=== PATIENT | female | born 2000 | race Caucasian/White ===

== ENCOUNTER 2019-04-03 23:25 | Emergency (ER) | payer OTHER ==
[~2019-04-03] VITALS: Ht 154.9 cm; Wt 56.7 kg
[2019-04-03 23:30] VITALS: BP 115/79
--- NOTE | 2019-04-03 23:30 | NUR ---
TO BED # 08 AMBULATORY
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
[2019-04-04] MEDS ORDERED: KETOROLAC 30 MG/ML VIAL IVP ONE (00:05)
[2019-04-04] MEDS ORDERED: NACL 0.9% 1,000 ML IV ONE (00:05)
[2019-04-04 00:20] LABS: BILIRUBIN,URINE NEGATIVE (NEGATIVE); BLOOD, URINE TRACE-I (NEGATIVE); COLOR,URINE YELLOW (YELLOW); LEUKOCYTE ESTERASE ,URINE NEGATIVE (NEGATIVE); NITRITE, URINE NEGATIVE (NEGATIVE); PH,URINE 6.5 (5.0-9.0); UGLUCOSE NEGATIVE (NEGATIVE)
[2019-04-04 00:22] LABS: BASOPHILS % (AUTO) 0.1 % (0.0-2.0); EOSINOPHILS # (AUTO) 0.2 K/uL (0-0.4); EOSINOPHILS % (AUTO) 3.2 % (0.0-4.0); HEMATOCRIT 39.7 % (36-48); HEMOGLOBIN 13.5 g/dL (12.0-16.0); LYMPHOCYTES # (AUTO) 2.7 K/uL (2.5-16.5); LYMPHOCYTES % (AUTO) 47.9 % (20.5-51.1); MEAN CORPUSCULAR HEMOGLOBIN 27 pg (27-31); MEAN CORPUSCULAR HGB CONC 34 g/dL (33-37); MEAN CORPUSCULAR VOLUME 79.3 fL (80-94); MONOCYTES # (AUTO) 0.4 K/uL (0.8-1.0); MONOCYTES % (AUTO) 7.9 % (1.7-9.3); NEUTROPHILS # (AUTO) 2.3 K/uL (1.8-7.7); NEUTROPHILS % (AUTO) 40.9 % (42.2-75.2); PLATELET COUNT (AUTO) 297 K/uL (140-450); WHITE BLOOD COUNT (AUTO) 5.6 K/uL (4.5-11.0)
[2019-04-04 00:32] LABS: ANION GAP 15.1 (8-16); CARBON DIOXIDE 24.7 mmol/L (21-32); CREATININE 0.8 mg/dL (0.6-1.3); POTASSIUM 3.8 mmol/L (3.5-5.1)
[2019-04-04 00:46] LABS: RBC,URINE 0-5 /HPF (0-5); WBC,URINE 0-5 /HPF (0-5)
[2019-04-04 01:07] VITALS: BP 115/79
--- NOTE | 2019-04-04 01:08 | NUR ---
Patient discharged with v/s stable. Written and verbal after care instructions given and explained. Patient verbalized understanding. Ambulatory with to home WITH MOTHER. All questions addressed prior to discharge. Advised to follow up with PMD.
[2019-04-04 11:55] LABS: APPEARANCE,URINE Hazy (CLEAR)
== END 2019-04-04 01:07 | disposition home or self-care (01) ==
LOC: MED 23:25
DX: R55 Syncope and collapse (principal); R51 Headache
CPT/HCPCS: 36415; 80048; 81001; 81025; 85025; 93005; 96361; 96374; 99284; J1885; J7030

== ENCOUNTER 2019-08-24 16:34 | Emergency (ER) | payer OTHER ==
[~2019-08-24] VITALS: Ht 162.6 cm; Wt 61.2 kg
[2019-08-24 16:43] VITALS: BP 120/87
[2019-08-24 17:31] VITALS: BP 128/84
--- NOTE | 2019-08-24 17:33 | NUR ---
Stable. VSS. Minimal pain. PA has reassessed and Dc'd home. To exit.
== END 2019-08-24 17:33 | disposition home or self-care (01) ==
LOC: MED 16:34
DX: B37.3 Candidiasis of vulva and vagina (principal); J06.9 Acute upper respiratory infection, unspecified
CPT/HCPCS: 81002; 81025; 99283

== ENCOUNTER 2020-05-28 17:47 | Emergency (ER) | payer OTHER ==
[~2020-05-28] VITALS: Ht 162.6 cm; Wt 59.0 kg
[2020-05-28 18:06] VITALS: BP 160/70
[2020-05-28] MEDS ORDERED: KETOROLAC 30 MG/ML VIAL IM ONE (18:25)
--- NOTE | 2020-05-28 18:25 | NUR ---
19 y/o female c/o sore throat, headache, Left side of neck swollen, pain 7/10 dull X1.5 WEEKS. Pt was prescribed amoxicillin and ibuprofen with no relief. Today denies fever, chills, N/V NO PMH, RX NKA
--- NOTE | 2020-05-28 18:32 | NUR ---
Strep A screen RAPID completed per MD order and sent to lab.
--- NOTE | 2020-05-28 19:10 | NUR ---
Gave report to URSULA Garza, transferred care at this time.
[2020-05-28] MEDS ORDERED: PENICILLIN G BENZATHINE L-A 1.2 MU/2 ML SYR IM ONE (19:55)
--- NOTE | 2020-05-28 19:55 | NUR ---
RECIEVED CALL FROM LAB THAT STATED RAPID STREP NEEDED TO BE RECOLLECTED. VINCENZO STOUT NOTIFIED AND STATED NO NEED TO RECOLLET SWAB AT THIS TIME.
[2020-05-28 20:23] VITALS: BP 160/70
--- NOTE | 2020-05-28 20:24 | NUR ---
Patient discharged with v/s stable. Written and verbal after care instructions given and explained. Patient alert, oriented and verbalized understanding of instructions. Ambulatory with steady gait. All questions addressed prior to discharge. ID band removed. Patient advised to follow up with PMD. Rx of PREDNISONE; IBUPROFEN given. Patient educated on indication of medication including possible reaction and side effects. Opportunity to ask questions provided and answered.
== END 2020-05-28 20:24 | disposition home or self-care (01) ==
LOC: MED 17:55
DX: J02.9 Acute pharyngitis, unspecified (principal); R51.9 Headache, unspecified
CPT/HCPCS: 87081; 96372; 99284; J0561; J1885

== ENCOUNTER 2022-03-04 21:07 | Emergency (ER) | payer OTHER ==
[~2022-03-04] VITALS: Ht 154.9 cm; Wt 52.2 kg
[2022-03-04 21:10] VITALS: BP 121/84
--- NOTE | 2022-03-04 21:13 | NUR ---
TO LOBBY A/W BED AMBULATORY
--- NOTE | 2022-03-04 21:56 | NUR ---
PT TAKEN TO BED 5
--- NOTE | 2022-03-04 22:04 | NUR ---
DR YAN AT BEDSIDE
[2022-03-04] MEDS ORDERED: IBUPROFEN 600 MG TAB PO ONE (22:10)
--- NOTE | 2022-03-04 22:17 | NUR ---
PT TAKEN TO XRAY
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
--- NOTE | 2022-03-04 22:26 | NUR ---
PT TO XRAY
--- NOTE | 2022-03-04 22:28 | NUR ---
PT RETURN FROM XRAY
[2022-03-04] MEDS ORDERED: NAPR-54 PO (23:05)
[2022-03-04 23:08] VITALS: BP 114/73
--- NOTE | 2022-03-04 23:08 | NUR ---
Patient discharged with v/s stable. Written and verbal after care instructions given and explained. Patient verbalized understanding. Ambulatory with steady gait. All questions addressed prior to discharge. Advised to follow up with PMD.
--- NOTE | 2022-03-04 23:15 | NUR ---
The patient's care was reviewed and supervised by Michelle Valladares RN.
== END 2022-03-04 23:08 | disposition home or self-care (01) ==
LOC: MED 21:07
DX: S33.9XXA Sprain of unspecified parts of lumbar spine and pelvis, initial encounter (principal); V49.88XA Car occupant (driver) (passenger) injured in other specified transport accidents, initial encounter; Y93.89 Activity, other specified; Y92.89 Other specified places as the place of occurrence of the external cause; Y99.8 Other external cause status
CPT/HCPCS: 72110; 81002; 81025; 99283